=== PATIENT | male | born 1980 | race African-American/Black ===

== ENCOUNTER 2019-01-18 20:53 | Emergency (ER) | payer SELFPAY ==
[~2019-01-18] VITALS: Ht 175.3 cm; Wt 113.4 kg
[~2019-01-18 20:53] MED LIST: EXCEDRIN EXTRA1 EAC1 PO; NKM
[2019-01-18 21:31] VITALS: BP 174/116
[2019-01-18] MEDS ORDERED: Lisinopril 10mg tab ORAL ONE (21:45)
[2019-01-18] MEDS ORDERED: cloNIDine 0.2mg Tab ORAL ONE (21:45)
[2019-01-18 22:10] VITALS: BP 173/123
[2019-01-18] MEDS ORDERED: Ketorolac 30mg Inj IM ONE (22:30)
[2019-01-18] MEDS ORDERED: LISINOPRIL10 MG ORAL (23:09)
[2019-01-18] MEDS ORDERED: IBUPROFEN600 MG ORAL (23:09)
[2019-01-18] MEDS ORDERED: PREDNISONE20 MG ORAL (23:09)
[2019-01-18] MEDS ORDERED: AMOXICILLIN500 MG ORAL (23:09)
[2019-01-18 23:14] VITALS: BP 173/98
--- NOTE | 2019-01-19 21:27 | Emergency Room Report ---
History of Present Illness General Chief Complaint: Headache Source: Patient Present Illness HPI 38-year-old male presents ED for evaluation. Patient walked in complaining of headache and high BP. Systolic in the 170s. States that he takes lisinopril and ran out of his medications 1 month ago. States he does not have a PMD at this time. States he thinks the high BP is causing his headache. Was seen here 2 days ago for the same thing. Pain is throbbing, 7 out of 10, nonradiating. Denies photophobia or blurry vision. Denies nausea or vomiting. Denies neck stiffness. States he also feels like he might have a "sinus infection". Notes congestion as well. No other aggravating or relieving factors. Denies any other associated symptoms Allergies: Coded Allergies: No Known Allergies (Unverified , 01/15/19) Patient History Past Medical History: HTN Past Surgical History: none Pertinent Family History: none Social History: Denies: smoking, alcohol use, drug use Immunizations: UTD Reviewed Nursing Documentation: PMH: Agreed; PSxH: Agreed Nursing Documentation-PMH Hx Hypertension: Yes Review of Systems All Other Systems: negative except mentioned in HPI Physical Exam Vital Signs Date Time Temp Pulse Resp B/P (MAP) Pulse Ox O2 Delivery O2 Flow Rate FiO2 01/18/19 21:21 98.4 91 18 174/116 (135) 98 Room Air Sp02 EP Interpretation: reviewed, normal General Appearance: no apparent distress, alert, GCS 15, non-toxic Head: normocephalic, atraumatic Eyes: bilateral eye normal inspection, bilateral eye PERRL ENT: hearing grossly normal, normal pharynx, no angioedema, normal voice Neck: full range of motion, supple/symm/no masses Respiratory: chest non-tender, lungs clear, normal breath sounds, speaking full sentences Cardiovascular #1: regular rate, rhythm, no edema Cardiovascular #2: 2+ carotid (R), 2+ carotid (L), 2+ radial (R), 2+ radial (L) , 2+ dorsalis pedis (R), 2+ dorsalis pedis (L) Gastrointestinal: normal bowel sounds, non tender, soft, non-distended, no guarding, no rebound Rectal: deferred Genitourinary: normal inspection, no CVA tenderness Musculoskeletal: back normal, gait/station normal, normal range of motion, non- tender Neurologic: alert, oriented x3, responsive, motor strength/tone normal, sensory intact, speech normal Psychiatric: judgement/insight normal, memory normal, mood/affect normal, no suicidal/homicidal ideation Reflexes: 3+ bicep (R), 3+ bicep (L), 3+ tricep (R), 3+ tricep (L), 3+ knee (R) , 3+ knee (L) Skin: normal color, no rash, warm/dry, well hydrated Lymphatic: no adenopathy Medical Decision Making Diagnostic Impression: Primary Impression: Hypertension Qualified Codes: I10 - Essential (primary) hypertension Additional Impression: Headache Qualified Codes: R51 - Headache ER Course Hospital Course 38-year-old male presents ED complaining of elevated BP, headache Differential diagnoses include: hypertensive urgency, hypertensive emergency, arrythmia, MS/ACS Clinical course Patient placed on stretcher. After initial history and physical I reviewed EMR. Patient was seen here 2 days ago for the same thing. Had full work-up including labs and CT head which were unremarkable. Patient was given BP meds in ED with BP improved. Patient states he did not tell the provider that he had run out of his lisinopril. Patient has no focal neurological deficits. No nuchal rigidity. I see no reason to repeat imaging or lab work at this time. Given lisinopril, clonidine here. Initial diastolic over 100. Repeat BP shows improved diastolic. I explained to patient that his BP has been out of control for 1 month and will require some time to improve with his BP meds. There is also concern for sinus infection which has been persisting for nearly 2 weeks without resolution. We will also prescribe antibiotics as the sinus infection could be also contributing to his symptoms Is visiting from [place] but states he will be here for another 2 weeks. In the meanwhile I do recommend patient be evaluated in outpatient setting. I will provide referrals I. I feel this is a highly complex case requiring extensive working including EKG/Rhythm strip, Xray/CT/US, Blood/urine lab work, repeat exams while in ED, and administration of strong opiates/narcotics for pain control, admission to hospital or close patient follow up. Diagnosis - hypertension, headache Stable and discharged to home with Lisinopril, amoxicillin, prednisone, ibuprofen. Instructed to followup with PMD. Return to ED if symptoms recur or worsen Last Vital Signs Date Time Temp Pulse Resp B/P (MAP) Pulse Ox O2 Delivery O2 Flow Rate FiO2 01/18/19 23:14 98.4 78 18 173/98 100 Room Air Status: improved Disposition: HOME, SELF-CARE Condition: Stable Scripts Prednisone* (PREDNISONE*) 20 Mg Tablet 40 MG ORAL DAILY, #10 TAB Prov: Lui Amador MD 01/18/19 Lisinopril* (LISINOPRIL*) 10 Mg Tablet 10 MG ORAL DAILY, #30 TAB Prov: Lui Amador MD 01/18/19 Amoxicillin* (AMOXIL*) 500 Mg Capsule 500 MG ORAL THREE TIMES A DAY for 10 Days, #30 CAP Prov: Lui Amador MD 01/18/19 Ibuprofen* (MOTRIN*) 600 Mg Tablet 600 MG ORAL Q8H PRN for For Pain, #30 TAB 0 Refills Prov: Lui Amador MD 01/18/19 Referrals: Saul Black [facility] Patient Instructions: Hypertension, [id number] Lui Amador MD Jan 19, 2019 21:27
== END 2019-01-18 23:15 | disposition home or self-care (01) ==
LOC: EMR 21:55
DX: I10 Essential (primary) hypertension (principal); R51 Headache
CPT/HCPCS: 96372; 99283; J1885